=== PATIENT | male | born 1980 | race African-American/Black ===

== ENCOUNTER 2021-03-11 21:14 | Emergency (ER) | payer SELFPAY ==
[2021-03-11] MEDS ORDERED: Ketorolac Tromethamine 30 MG/ML VIAL ONE (23:06)
== END 2021-03-11 23:45 | disposition home or self-care (01) ==
LOC: CSHERS 21:14
DX: S60.221A Contusion of right hand, initial encounter (principal); W20.8XXA Other cause of strike by thrown, projected or falling object, initial encounter
CPT/HCPCS: 96372; J1885

== ENCOUNTER 2021-07-22 22:17 | Emergency (ER) | payer SELFPAY ==
[2021-07-23 00:29] LABS: Bilirubin Neg (Negative); Blood, Urine 10 (Negative); Clarity Clear (Clear); Glucose, Urine (Dipstick) Normal (Negative); Ketone, Urine Negative (Negative); Leukocyte Negative (Negative); Nitrite Negative (Negative); Protein, Urine (Dipstick) Negative (Neg-Trace)
[2021-07-23 00:52] LABS: Bacteria/HPF Rare-Few HPF (None Seen); RBC/HPF 0-3 HPF (0-3); Squamous Epithelial None Seen HPF (0-3)
[2021-07-23] MEDS ORDERED: Acetaminophen 500 MG TAB ONE (00:56)
[2021-07-23] MEDS ORDERED: Ibuprofen 200 MG TAB ONE (00:56)
== END 2021-07-23 01:57 | disposition home or self-care (01) ==
LOC: CSHERS 22:17
DX: R10.9 Unspecified abdominal pain (principal)
CPT/HCPCS: 71045; 81003; 81015

== ENCOUNTER 2021-12-01 13:28 | Emergency (ER) | payer SELFPAY | END 2021-12-01 15:16 | disposition left against medical advice (07) | LOC: CSHERS 13:28 | DX: Z53.21 Procedure and treatment not carried out due to patient leaving prior to being seen by health care provider (principal) ==